=== PATIENT | female | born 1960 | race Caucasian/White ===

== ENCOUNTER 2017-07-16 18:27 | Emergency (ER) | payer OTHER ==
[~2017-07-16] VITALS: Ht 154.9 cm; Wt 68.0 kg
--- OUTSIDE RECORDS SUMMARY | 2017-07-16 18:29 | XMS REPORT ---
Author [facility] Address Unknown Phone Unavailable Care Team Providers Care Crusher Feeder Name Role Phone Unavailable Unavailable Problems This patient has no known problems. Allergies, Adverse Reactions, Alerts This patient has no known allergies or adverse reactions. Medications This patient has no known medications. Encounters Start Date/Time End Date/Time Encounter Type Admission Type Attending [facility] Facility Care Department Encounter ID 2017-09-11 00:00:00 2017-09-11 00:00:00 Outpatient [facility] [id number] 2017-09-11 00:00:00 2017-09-11 00:00:00 Outpatient [facility] [id number] 2017-09-11 00:00:00 2017-09-11 00:00:00 Outpatient [facility] [id number] 2017-09-11 00:00:00 2017-09-11 00:00:00 Outpatient [facility] [id number] 2017-07-25 00:00:00 2017-07-25 00:00:00 Outpatient [facility] [id number] 2017-07-22 00:00:00 2017-07-22 00:00:00 Outpatient [facility] [id number] 2017-07-16 13:36:37 2017-07-16 13:36:37 Outpatient [facility] [id number] 2017-06-19 14:49:43 2017-06-19 14:49:43 Outpatient [facility] [id number] 2017-06-19 13:06:39 2017-06-19 13:06:39 Outpatient [facility] [id number] 2017-06-19 11:20:12 2017-06-19 11:20:12 Outpatient [facility] [id number] 2017-06-19 10:39:28 2017-06-19 10:39:28 Outpatient [facility] [id number] 2017-06-19 10:30:10 2017-06-19 10:30:10 Outpatient [facility] [id number] 2017-06-06 14:30:23 2017-06-06 14:30:23 Outpatient [facility] [id number] 2017-06-02 13:11:38 2017-06-02 13:11:38 Outpatient [facility] [id number] 2017-05-30 15:23:53 2017-05-30 15:23:53 Outpatient [facility] [id number] 2017-05-14 12:14:20 2017-05-14 12:14:20 Outpatient [facility] [id number] 2017-04-15 00:00:00 2017-04-15 00:00:00 Outpatient [facility] [id number] 2017-04-14 00:00:00 2017-04-14 00:00:00 Outpatient [facility] [id number] 2017 11:43:27 2017 11:43:27 Outpatient [facility] [id number] 2017-03-12 12:24:14 2017-03-12 12:24:14 Outpatient [facility] [id number] 2017-03-06 00:00:00 2017-03-06 00:00:00 Outpatient [facility] [id number] 2017-02-25 13:36:06 2017-02-25 13:36:06 Outpatient [facility] [id number] 2017-02-24 13:37:21 2017-02-24 13:37:21 Outpatient [facility] [id number] 2017-02-11 12:06:59 2017-02-11 12:06:59 Outpatient [facility] [id number] 2017-01-24 14:41:17 2017-01-24 14:41:17 Outpatient [facility] [id number] 2017-01-24 13:38:59 2017-01-24 13:38:59 Outpatient [facility] [id number] 2017-01-20 13:06:21 2017-01-20 13:06:21 Outpatient [facility] [id number] 2017-01-09 00:00:00 2017-01-09 00:00:00 Outpatient [facility] [id number]
[2017-07-16] MEDS ORDERED: ACETAMINOPHEN/CODEINE 300MG - 30MG TAB PO ONE (18:45)
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
--- NOTE | 2017-07-16 19:33 | Diagnostic Imaging Report ---
PELVIS AP 1-2 VIEWS - 3 views HISTORY: Pain. COMPARISON: None available. FINDINGS: Bones: No acute displaced fracture. Osseous alignment is within normal limits. Joints: DJD of the hip joint bilaterally. Degenerative changes of the lower lumbar spine. Soft tissues: The soft tissues appear unremarkable. IMPRESSION: No acute radiographic abnormality. DJD of the hip joint bilaterally. Signed by: Dr. Olga Avila M.D. on 07/16/2017 7:30 PM
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
--- NOTE | 2017-07-16 19:46 | Diagnostic Imaging Report ---
FOOT RIGHT COMPLETE - 3 views HISTORY: Pain. Rule out fracture. COMPARISON: None available. FINDINGS: Bones: Deformity of the proximal epiphysis of the second metatarsal bone with ill-defined patchy sclerosis may reflect a subacute fracture. Joints: DJD of the first tarso-metatarsal joint. Soft tissues: Overlying soft brace. Small plantar calcaneal enthesophyte. IMPRESSION: Findings may reflect a subacute fracture of the proximal epiphysis of the second metatarsal bone. Signed by: Dr. Olga Avila M.D. on 07/16/2017 7:42 PM
== END 2017-07-16 20:30 | disposition home or self-care (01) ==
LOC: ER 18:27
DX: S00.83XA Contusion of other part of head, initial encounter (principal); S60.512A Abrasion of left hand, initial encounter; S60.511A Abrasion of right hand, initial encounter; S80.211A Abrasion, right knee, initial encounter; W01.0XXA Fall on same level from slipping, tripping and stumbling without subsequent striking against object, initial encounter; Y92.008 Other place in unspecified non-institutional (private) residence as the place of occurrence of the external cause; I10 Essential (primary) hypertension; M32.9 Systemic lupus erythematosus, unspecified
CPT/HCPCS: 70450; 70486; 71046; 72125; 72170; 99284

== ENCOUNTER 2018-07-30 19:13 | Emergency (ER) | payer OTHER ==
[~2018-07-30] VITALS: Ht 154.9 cm; Wt 68.0 kg
[2018-07-30 20:03] LABS: STREPTOCOCCUS GRP A ANTIGEN NEGATIVE (NEGATIVE)
[2018-07-30 20:12] LABS: INFLUENZAE A&B ANTIGEN (RAPID) NEGATIVE (NEGATIVE)
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
== END 2018-07-30 21:40 | disposition home or self-care (01) ==
LOC: ER 19:13
DX: J30.1 Allergic rhinitis due to pollen (principal); J30.89 Other allergic rhinitis; I10 Essential (primary) hypertension; F41.9 Anxiety disorder, unspecified; K21.9 Gastro-esophageal reflux disease without esophagitis; E78.5 Hyperlipidemia, unspecified
CPT/HCPCS: 71046; 83518; 87070; 87400; 99283

== ENCOUNTER 2018-10-28 17:41 | Emergency (ER) | payer OTHER ==
[~2018-10-28] VITALS: Ht 154.9 cm; Wt 70.3 kg
[2018-10-28] MEDS ORDERED: TETANUS/DIPHTHERIA TOX ADULT 0.5 ML SYR IM ONE (19:30)
[2018-10-28] MEDS ORDERED: LIDOCAINE HCL 1% 2 ML AMP INJ ONE (19:30)
--- NOTE | 2018-10-28 20:17 | Diagnostic Imaging Report ---
RIGHT TIBIA AND FIBULA - 2 Images HISTORY: Fell, puncture, rule out foreign body COMPARISON: None available. FINDINGS: Bones: No acute displaced fracture. No aggressive osseous lesion. Joints: Osseous alignment is within normal limits and the joint spaces are well-maintained. Soft tissues: The soft tissues appear unremarkable. IMPRESSION: 1. No acute radiographic abnormality. 2. Specifically, no radiopaque foreign body. Signed by: Dr. Sunday Wiggins D.O., M.M.M. on 10/28/2018 8:14 PM
[2018-10-28] MEDS ORDERED: LIDOCAINE HCL 1% LOCAL INJ 20 ML VIAL ONE (21:23)
[2018-10-28] MEDS ORDERED: BACITRACIN ZINC 0.9GM TP ONE (21:45)
[2018-10-28 21:57] VITALS: BP 123/71
== END 2018-10-28 22:00 | disposition home or self-care (01) ==
LOC: ER 17:41
DX: S81.811A Laceration without foreign body, right lower leg, initial encounter (principal); S80.812A Abrasion, left lower leg, initial encounter; W01.198A Fall on same level from slipping, tripping and stumbling with subsequent striking against other object, initial encounter; Y92.008 Other place in unspecified non-institutional (private) residence as the place of occurrence of the external cause; I10 Essential (primary) hypertension; M32.9 Systemic lupus erythematosus, unspecified; F41.9 Anxiety disorder, unspecified; K21.9 Gastro-esophageal reflux disease without esophagitis; E78.5 Hyperlipidemia, unspecified
CPT/HCPCS: 12001; 73590; 90471; 90714; 99284; J2001

== ENCOUNTER 2019-01-03 19:11 | Emergency (ER) | payer OTHER ==
[~2019-01-03] VITALS: Ht 154.9 cm; Wt 70.3 kg
--- NOTE | 2019-01-03 19:58 | NUR ---
PT BROUGHT BACK TO ROOM 6 FROM RADIOLOGY AT THIS TIME, UPDATED ON PLAN OF CARE, AT BEDSIDE.
--- NOTE | 2019-01-03 20:46 | Diagnostic Imaging Report ---
Exam: Right rib series History: Right rib pain status post fall Comparison: Chest radiograph 07/30/2018 Findings: Frontal chest radiograph shows well-inflated lungs without focal airspace consolidation, pleural effusion, or pneumothorax. Stable cardiomediastinal contour with mild tortuosity of the thoracic aorta. Normal heart size, without overt pulmonary edema. Faint subcentimeter right upper lobe nodular opacities are unchanged. No displaced right rib fracture. No pneumothorax. Degenerative changes of the partially visualized thoracolumbar spine. Impression: No displaced right rib fracture or pneumothorax. Signed by: Dr. Skip De Jesus M.D. on 01/03/2019 8:42 PM
[2019-01-03] MEDS ORDERED: KETOROLAC TROMETHAMINE 60 MG/2 ML VIAL IM ONE (21:00)
[2019-01-03 21:40] VITALS: BP 156/98
== END 2019-01-03 21:41 | disposition home or self-care (01) ==
LOC: ER 19:11
DX: S20.211A Contusion of right front wall of thorax, initial encounter (principal); W01.0XXA Fall on same level from slipping, tripping and stumbling without subsequent striking against object, initial encounter; Y92.002 Bathroom of unspecified non-institutional (private) residence as the place of occurrence of the external cause; I10 Essential (primary) hypertension; F41.9 Anxiety disorder, unspecified; F32.9 Major depressive disorder, single episode, unspecified; K21.9 Gastro-esophageal reflux disease without esophagitis; E78.5 Hyperlipidemia, unspecified
CPT/HCPCS: 71101; 99283; J1885